=== PATIENT | male | born 1990 | race Caucasian/White ===

== ENCOUNTER 2020-03-21 05:08 | Outpatient (CLI) | payer MEDICAID, SELFPAY ==
[2020-03-21 13:02] LABS: ALT 54 U/L (16-63); AST 51 U/L (15-37); Albumin 3.9 g/dL (3.4-5.0); Alkaline Phosphatase 86 U/L (46-116); Anion Gap 7.7 mmol/L (3-11); BUN 11 mg/dL (7-18); Bilirubin, Total 0.4 mg/dL (0.2-1.0); CO2 27.3 mmol/L (21.0-32.0); CREATININE 0.62 mg/dL (0.70-1.30); Calcium 8.5 mg/dL (8.5-10.1); Calculated LDL 123 mg/dL (<100); Chloride 102 mmol/L (98-107); Cholesterol 190 mg/dL (<200); Glucose 111 mg/dL (74-106); HDL Cholesterol 42 mg/dL (40-60); Potassium 4.1 mmol/L (3.5-5.1); Sodium 137 mmol/L (136-145); TSH (W/Ref FT4) 1.56 uIU/mL (0.36-3.74); Total Protein 6.6 g/dL (6.4-8.2); Triglyceride 126 mg/dL (<150)
[2020-03-22 10:43] LABS: HIV-1/2 Ag & Ab Screen Negative (Negative)
[2020-03-22 11:21] LABS: HBs Antibody, Qual Positive (See Note); HBs Antibody, Quant 20.9 mIU/mL (See Note); Hepatitis B Core Antibody Negative (Negative); Hepatitis B surface Ag Negative (Negative); Hepatitis C Ab w Rflx HCV PCR Reactive (Negative)
[2020-03-23 14:00] LABS: HCV RNA Qualitative Detected (Undetected)
== END 2020-03-21 05:28 ==
PROVIDERS: PCP Family Medicine; Visit Provider Family Medicine
DX: F19.11 Other psychoactive substance abuse, in remission (principal); R25.1 Tremor, unspecified; Z13.220 Encounter for screening for lipoid disorders; Z13.29 Encounter for screening for other suspected endocrine disorder; Z11.4 Encounter for screening for human immunodeficiency virus [HIV]; Z11.59 Encounter for screening for other viral diseases
CPT/HCPCS: 36415; 80053; 80061; 86704; 86706; 86803; 87340; 87389; 87522; 84443

== ENCOUNTER 2020-05-05 01:32 | Outpatient (CLI) | payer MEDICAID, SELFPAY ==
[2020-05-05 13:00] LABS: Abs Immature Grans 0.02 10^3/uL (0.0-0.06); Absolute Basophil Count 0.02 10^3/uL (0.0-0.2); Absolute Eosinophil Count 0.17 10^3/uL (0.0-0.7); Absolute Monocyte Count 0.45 10^3/uL (0.1-0.8); Absolute Neutrophil Count 2.81 10^3/uL (1.2-6.7); Basophils % 0.3; Eosinophils % 2.8; HCT 43.4 % (40.0-50.0); HGB 14.5 g/dL (13.5-17.5); Immature Grans % 0.3; Lymphocytes % 41.9; MCHC 33.4 % (32.0-36.0); MCV 89.9 fL (80-95); MPV 11.8 fL (8.0-11.0); Monocytes % 7.5; Neutrophils % 47.2; Nucleated RBC 0 %; Platelet Count 126 10^3/uL (130-400); RBC 4.83 10^6/uL (4.36-5.78); RDW 12.7 % (11.8-14.1); RDW-SD 41.9 fL; WBC 5.97 10^3/uL (4.4-10.8)
[2020-05-08 18:18] LABS: HCV Genotype 2 (Undetected)
== END 2020-05-05 01:52 ==
PROVIDERS: PCP Family Medicine; Visit Provider Nurse Practitioner Adult Health
DX: B18.2 Chronic viral hepatitis C (principal)
CPT/HCPCS: 36415; 85025; 87521

== ENCOUNTER 2020-12-04 02:11 | Outpatient (CLI) | payer MEDICAID, SELFPAY ==
[2020-12-04 12:09] LABS: Abs Immature Grans 0.02 10^3/uL (0.0-0.06); Absolute Basophil Count 0.04 10^3/uL (0.0-0.2); Absolute Eosinophil Count 0.07 10^3/uL (0.0-0.7); Absolute Lymphocyte Count 2.35 10^3/uL (1.2-3.4); Absolute Monocyte Count 0.38 10^3/uL (0.1-0.8); Absolute Neutrophil Count 2.95 10^3/uL (1.2-6.7); Basophils % 0.7; Eosinophils % 1.2; HCT 42.8 % (40.0-50.0); HGB 14.3 g/dL (13.5-17.5); Immature Grans % 0.3; Lymphocytes % 40.4; MCH 30.4 pg (27.0-33.0); MCHC 33.4 % (32.0-36.0); MCV 91.1 fL (80-95); MPV 13.8 fL (8.0-11.0); Monocytes % 6.5; Neutrophils % 50.9; Nucleated RBC 0 %; RDW 12.3 % (11.8-14.1); RDW-SD 41.2 fL; WBC 5.81 10^3/uL (4.4-10.8)
[2020-12-04 12:41] LABS: Diff Comment PLT Morph Reviewed; Platelet Count 106 10^3/uL (130-400); RBC Morphology Normal
== END 2020-12-04 02:12 | disposition home or self-care (01) ==
LOC: LOS 02:11
PROVIDERS: Nurse Practitioner Adult Health; PCP Family Medicine; Visit Provider Family Medicine
DX: B18.2 Chronic viral hepatitis C (principal)
CPT/HCPCS: 36415; 80053; 87522; 85025; 87521

== ENCOUNTER 2022-06-19 13:45 | Emergency (ER) | payer MEDICAID, SELFPAY ==
[2022-06-19 14:06] VITALS: BP 119/69; PULSE 58; RESP 14; TEMP 36.8; O2SAT 96
== END 2022-06-19 15:46 | disposition left against medical advice (07) ==
PROVIDERS: PCP Family Medicine
DX: Z53.21 Procedure and treatment not carried out due to patient leaving prior to being seen by health care provider (principal)

== ENCOUNTER 2023-06-12 23:26 | Emergency (ER) | payer MEDICAID, SELFPAY ==
[2023-06-12] MEDS: methylPREDNISolone SUCC 125 MG VIAL IVP (23:26)
--- NOTE | 2023-06-12 23:28 | ED.GENADUL_ITS ---
Discharge Plan Disposition Patient Disposition: Home Condition: Improving Discharge Details Clinical Impression: Urticaria Primary Care Provider: Hussain Rosenbaum ED Provider: Alonso Carrillo Meds and New Rx's Prescriptions: New prednisone 10 mg tablets,dose pack 10 mg PO DIRECTED Qty: 30 0RF Rx Instructions: see taper instructions 4 tab x 3 days, 3 tab x 3 days,2 tab x 3 days, 1 tab x 3 days Continued (DME) lancets Misc See Rx Instructions .ROUTE .MEDSUPPLY Qty: 10 0RF Rx Instructions: To check for suspected hypoglycemia, prn when symptoms occur (DME) Blood Glucose Test Strip See Rx Instructions .ROUTE .MEDSUPPLY Qty: 25 0RF Rx Instructions: Test prn with symptoms of hypoglycemia (DME) blood-glucose meter Misc See Rx Instructions .ROUTE .MEDSUPPLY Qty: 1 0RF Rx Instructions: Test prn with symptoms of hypoglycemia gabapentin 300 mg capsule 300 mg PO DAILY methadone 10 mg tablet 90 mg PO DAILY Patient Comments: pt reported prescribed from [facility]. Discharge Instructions Instructions: Urticaria (ED) Discharge Data Discharge Physician: Alonso Carrillo Medical Decision Making Patient presents emergency department with urticarial rash who received Solu- Medrol, Benadryl, famotidine with complete resolution of his symptoms. He will be discharged on tapering dose of prednisone. He is unsure why he developed this rash he will also be giving an EpiPen if needed HPI General Date/Time Provider Initiated Documentation: 06/12/23 23:28 . HPI Narrative: Patient presents emergency department complaining of a rash in his abdomen and arms is very itchy for the last 24 hours denies any ingestion and denies any allergies Related Data Home Medications Medication Instructions Recorded Confirmed methadone 10 mg tablet 90 mg PO DAILY 02/16/20 04/29/23 blood sugar diagnostic (Blood #25 ea 10/12/20 04/29/23 Glucose Test strips) blood-glucose meter #1 ea 10/12/20 04/29/23 lancets #10 ea 10/12/20 04/29/23 gabapentin 300 mg capsule 300 mg PO DAILY 06/20/22 04/29/23 prednisone 10 mg tablets in a dose 10 mg PO DIRECTED #30 dose pk 06/13/23 pack Previous Rx's Medication Instructions Recorded blood sugar diagnostic (Blood #25 ea 10/12/20 Glucose Test strips) blood-glucose meter #1 ea 10/12/20 lancets #10 ea 10/12/20 prednisone 10 mg tablets in a dose 10 mg PO DIRECTED #30 dose pk 06/13/23 pack Allergies Allergy/AdvReac Type Severity Reaction Status Date / Time No Known Allergies Allergy Verified 04/29/23 09:21 General SIMBA: 4 Review of Systems Narrative: Review of Systems: Constitutional: No fevers, chills, sweats Eye: No recent visual problems ENT: No ear pain, nasal congestion, sore throat Respiratory: No shortness of breath, cough Cardiovascular: No Chest pain, palpitations, syncope Gastrointestinal: No nausea, vomiting, diarrhea Genitourinary: No hematuria Irvin/Lymph: Negative for bruising tendency, swollen lymph glands Endocrine: Negative for excessive thirst, excessive hunger Musculoskeletal: No back pain, neck pain, joint pain, muscle pain, decreased range of motion Integumentary: No rash, pruritus, abrasions Neurologic: Alert & oriented X 4 Psychiatric: No anxiety, depression PFSH All Active Problems Urticaria (Acute) Sore throat (Acute) Discharge of right eye (Acute) Hepatitis C infection (Chronic) 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 Nicotine dependence (Acute) Bipolar disorder (Acute) History of intravenous drug abuse (Acute) Family History Paternal Grandmother Diabetes Hypertension Father Depression Anxiety Sister Depression Mother Depression Anxiety Sister Anxiety Maternal Grandfather Heart disease Hypertension Social History Smoking/Tobacco Use Status: Current every day Tobacco Type: cigarettes Smoking packs per day: 1 Smoking cigarettes per day: 20.0 and e-cigarettes Tobacco: How many years used: 12 Quit status: not considering quitting Second Hand Exposure: Yes Smoking risk assessment performed?: Yes Alcohol Intake: never Drug use: Daily Substance use type: former substance user Date of last use: 03/14/2019--heroin,cocaine/crack--some IV use and marijuana Adopted: No Caregiver/Support person: No Foster care: No Household members: family Housing: house Number of Children: 2 Communication Needs: Corrective Lenses Education Level: high school Do you need help understanding health information?: Rarely current occupation: Unemployed--self employed, odd jobs Sexually active: Yes Do you think of yourself as: straight/heterosexual Current gender identity: male What type of physical activity do you participate in: other Details: gardening, farming Seatbelt use: sometimes 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 Working smoke detector in home: Yes Fire extinguisher in home: Yes Carbon monox detector in home: Yes Firearms in home: No Do you feel safe at home: Yes Do you feel safe in your relationship?: Yes Exam Narrative Exam Narrative: Exam; vitals signs as reported above normal Constitutional; In no acute distress, afebrile General: cooperative, healthy appearing, comfortable and no acute distress HEENT: Head: normal to inspection, no palpable skull fracture and normocephalic atraumatic Eyes: : appearance normal, both eyes and all related structures EOM intact bi laterally Pupils: PERRL : conjunctiva normal Direct ophthalmoscopy: normal light reflex, normal conjunctiva, normal visual acuity Ears: Normal TM, normal external canal Nose: normal no rhinorreha Neck no JVD, supple non tender Neck: normal visual inspection, full ROM and no lymphadenopathy Chest: normal inspection of the chest Respiratory : normal respiratory effort and able to speak in complete sentences no wheezing no rales Cardio Rate: regular rate, rhythm: regular rhythm normal heart sounds S1 and S2 no murmurs, gallops, or rubs GI : normal to inspection, normal bowel sounds, soft, non tender, non distended, no organomegaly Back/Spine/ no CVA tenderness Thoracic/Lumbar Spine: no tenderness or deformities Skin urticarial rash all over his abdomen and arms Neuro: patient alert oriented x 4 and no meningeal signs, Cranial Nerves: CN's II-XI intact bilaterally, Cognition: normal cognition, Speech: speech normal, Gait: normal gait, Depp tendon reflexes normal 2+ muscle strength 5/5 bilaterally Extremities, no edema, full range of motion, normal strength
[2023-06-12 23:34] VITALS: BP 153/64; PULSE 72; RESP 16; TEMP 37.1; O2SAT 97
[2023-06-13] MEDS: Famotidine 20 MG/2 ML VIAL IVP (00:02)
[2023-06-13] MEDS: diphenhydrAMINE 50 MG/ML VIAL IVP (00:03)
[2023-06-13 00:54] VITALS: BP 140/68; PULSE 82; RESP 16; TEMP 37.1; O2SAT 99
== END 2023-06-13 00:52 | disposition home or self-care (01) ==
PROVIDERS: Emergency Provider Emergency Medicine Emergency Medical Services; PCP Family Medicine
DX: L29.9 Pruritus, unspecified (principal); L50.9 Urticaria, unspecified; F17.210 Nicotine dependence, cigarettes, uncomplicated
CPT/HCPCS: 96374; 96375; 99283; J1200; J2930

== ENCOUNTER 2023-10-27 15:53 | Outpatient (CLI) | payer MEDICAID, SELFPAY ==
--- NOTE | 2023-10-27 08:30 | DI.RAD_ITS ---
Exam(s) XR KNEE LT 4V AP,LAT,KEVIN,PAT EXAM: XR KNEE LT 4V AP,LAT,KEVIN,PAT CLINICAL HISTORY: knee pain. TECHNIQUE: 2D digital imaging was performed of the left knee. Five images were obtained. Merchant, AP, lateral and PA tunnel views were obtained. COMPARISON: No exams were available for comparison FINDINGS: BONES: No acute fracture is present. No bony destructive lesion is seen. JOINTS: The knee is normally aligned. No joint effusion is seen. No loose body. SOFT TISSUE: There is a well corticated osseous fragment in the inferior aspect of the patella likely imbedded in the extensor mechanism. This is chronic. IMPRESSION: No acute abnormality. DATA REPOSITORY: RADIATION DOSE DELIVERED:
--- NOTE | 2023-10-27 08:30 | DI.RAD_ITS ---
Exam(s) XR KNEE RT 4V AP,LAT,KEVIN,PAT EXAM: XR KNEE RT 4V AP,LAT,KEVIN,PAT CLINICAL HISTORY: knee pain. TECHNIQUE: 2D digital imaging was performed of the right knee. Four views obtained. Merchant, AP, la teral and PA tunnel views were obtained. COMPARISON: CR XR KNEE LT 4V AP,LAT,KEVIN,PAT from 10/27/2023 FINDINGS: BONES: No acute fracture is present. No bony destructive lesion is seen. JOINTS: The knee is normally aligned. No joint effusion is seen. SOFT TISSUE: Normal. IMPRESSION: Unremarkable radiographs of the right knee. DATA REPOSITORY: RADIATION DOSE DELIVERED:
== END 2023-10-27 15:54 | disposition home or self-care (01) ==
LOC: DIORS 15:54
PROVIDERS: PCP Family Medicine; Visit Provider Physician Assistant
DX: M25.562 Pain in left knee (principal); M25.561 Pain in right knee
CPT/HCPCS: 73564

== ENCOUNTER 2024-04-16 16:33 | Outpatient (REF) | payer MEDICAID, SELFPAY ==
[2024-04-16 21:08] LABS: *AMPHETAMINES SCREEN URINE Negative (Negative); *BARBITURATES SCREEN URINE Negative (Negative); *BENZODIAZEPINES SCREEN URINE Negative (Negative); Cannabinoids THC Negative (Negative); Cocaine Screen,Urine Positive (Negative); METHADONE URINE SCREEN Positive (Negative); OPIATES URINE SCREEN Negative (Negative); Tricyclic Antidepressants Negative (Negative)
== END 2024-04-16 16:34 | disposition home or self-care (01) ==
LOC: LBN 16:33
PROVIDERS: PCP Family Medicine; Visit Provider Family Medicine
DX: Z79.899 Other long term (current) drug therapy (principal)
CPT/HCPCS: 80307

== ENCOUNTER 2024-06-11 12:40 | Emergency (ER) | payer MEDICAID, SELFPAY ==
[2024-06-11] VITALS (7 sets, daily range): BP systolic 168–181; BP diastolic 94–95; PULSE 93–106; RESP 16; TEMP 36.6; O2SAT 96–98
--- NOTE | 2024-06-11 12:55 | ED.GENADUL_ITS ---
Discharge Plan Disposition Patient Disposition: Home Condition: Stable Discharge Details Clinical Impression: Cellulitis of right lower extremity Primary Care Provider: Hussain Rosenbaum ED Provider: Salena Recio Home Meds and New Rx's Prescriptions: New cephalexin 500 mg tablet 500 mg PO BID 7 Days Qty: 14 0RF No Action methadone 10 mg tablet 90 mg PO DAILY Patient Comments: pt reported prescribed from [facility]. Discharge Instructions Instructions: Cellulitis (Skin Infection), Adult ED Additional Instructions: At this time workup is negative for systemic infection or blood clot in your leg. I do suspect that you have an infection to the skin on your leg. Please take the antibiotic with yogurt or a probiotic twice a day for the next 7 days. Keep your legs elevated when sitting or lying down. Increase oral fluids such as water. Decrease your salt intake. Follow up with primary care provider in 3-5 days. Return to ED sooner if any worsening or concerns. Please take Tylenol or Ibuprofen with food every 4-6 hours as needed for pain and swelling. Referrals: Hussain Rosenbaum DO [Primary Care Provider] - 5 days HPI General Mode of arrival: ambulatory . Date/Time Provider Initiated Documentation: 06/11/24 12:42 . Limitations to Documentation: no limitations . Information obtained by: patient, RN notes reviewed and old records reviewed . HPI Narrative: 34-year-old male presents to the ER with a chief complaint of lower extremity swelling and redness x 1 week. He reports burning noting to his right lower extremity. He does have some erythema noted anteriorly, it extends all the way up to his medial popliteal space. It is tender to the touch and warm. He is slightly disheveled, however he is alert and oriented 3 denies any chest pain shortness of breath fever chills. He endorses smoking daily denies any drugs or alcohol. He does take methadone daily and naproxen twice a day. Related Data Home Medications ?Medication ?Instructions ?Recorded ?Confirmed methadone 10 mg tablet 90 mg PO DAILY 02/16/20 06/11/24 cephalexin 500 mg tablet 500 mg PO BID 7 days #14 tabs 06/11/24 Previous Rx's ?Medication ?Instructions ?Recorded cephalexin 500 mg tablet 500 mg PO BID 7 days #14 tabs 06/11/24 Allergies Allergy/AdvReac Type Severity Reaction Status Date / Time No Known Allergies Allergy Verified 06/11/24 12:52 General Stated Complaint: GenMedical SIMBA: 3 Review of Systems All systems reviewed & are unremarkable except as noted in HPI and below Cardiovascular Cardiovascular: Reports acrocyanosis, Denies chest pain, Reports leg edema and Denies dyspnea Respiratory Respiratory: Denies dyspnea Musculoskeletal Musculoskeletal: Reports as per HPI Integumentary/Breasts Skin/Breast: Reports as per HPI, Reports erythema, Reports skin pain and Reports skin swelling Exam Extrem Right lower extremity: lower leg Details: erythema Location: of the mid lower leg Location: anteriorly, tenderness, pitting edema Details: 2+ and warmth Left lower extremity: lower leg Details: erythema Location: of the distal lower leg Location: anteriorly, tenderness, localized swelling, no edema and non- pitting edema Upper/lower leg/hip images: 2 1. Erythema, scaly, surrounding 1+ pitting edema tenderness with palpation and warmth. Course Vital Signs Vital signs: Vital Signs Temperature 36.6 C 06/11/24 12:43 Pulse 106 H 06/11/24 12:43 Blood Pressure 181/94 H 06/11/24 12:43 Pulse Oximetry 96 06/11/24 12:43 Temperature 36.6 C 06/11/24 12:43 Pulse 106 H 06/11/24 12:43 Blood Pressure 181/94 H 06/11/24 12:43 Pulse Oximetry 96 06/11/24 12:43 Medical Decision Making 34-year-old male presents to the ER with a chief complaint of lower extremity swelling and redness x 1 week. He reports burning noting to his right lower extremity. He does have some erythema noted anteriorly, it extends all the way up to his medial popliteal space. It is tender to the touch and warm. Workup ordered including CBC CMP blood cultures x 2, lactate D-dimer proBNP. I do suspect cellulitis however differential diagnosis includes but not to CHF, DVT, peripheral vascular disease. No leukocytosis, lactate is normal electrolytes are okay, glucose 109 proBNP is 15. Informed by temporary staff accountant that patient is becoming antsy and requesting to go to. No evidence of DVT to the lower extremity. Labs are largely unremarkable for systemic infection. Will give him cephalexin for likely cellulitis. Instructed on elevating his legs and follow-up care. This text was generated using [employer]umi[employer] system, please disregard any oddities of phrase or misspellings. Medical Records Medical records reviewed: Yes I reviewed the patient's medical records. Lab Data Lab results reviewed: Yes I reviewed the patient's lab results. Labs: 06/11/24 13:49 Blood Blood Culture - Pending 06/11/24 13:20 Blood Blood Culture - Pending Laboratory Tests Range/Units 06/11/24 13:20 WBC (4.4-10.8) 10^3/uL 7.35 RBC (4.36-5.78) 10^6/uL 4.77 Hgb (13.5-17.5) g/dL 13.4 L Hct (40.0-50.0) % 41.8 MCV (80-95) fL 88 MCH (27.0-33.0) pg 28.1 MCHC (32.0-36.0) % 32.1 RDW (11.8-14.1) % 13.4 Plt Count (130-400) 10^3/uL 181 MPV (8.0-11.0) fL 10.0 Immature Gran % % 0.3 Neutrophils % % 61.1 Lymphocytes % % 28.6 Monocytes % % 7.3 Eosinophils % % 2.4 Basophils % % 0.3 Nucleated RBC % (0.0-0.3) % 0.0 Absolute Neutrophils (1.2-6.7) 10^3/uL 4.49 Absolute Lymphocytes (1.2-3.4) 10^3/uL 2.10 Absolute Monocytes (0.1-0.8) 10^3/uL 0.54 Absolute Eosinophils (0.0-0.7) 10^3/uL 0.18 Absolute Basophils (0.0-0.2) 10^3/uL 0.02 VBG Lactate (0.6-1.4) mmol/L 0.8 Sodium (136-145) mmol/L 142 Potassium (3.5-5.1) mmol/L 4.9 Chloride (98-107) mmol/L 106 Carbon Dioxide (21.0-32.0) mmol/L 29.5 Anion Gap (3-11) mmol/L 6.5 BUN (7-18) mg/dL 11 Creatinine (0.70-1.30) mg/dL 0.7 Est GFR (CKD-EPI 2020) (mL/min/1.73m2) 125.55 Glucose (74-106) mg/dL 109 H Calcium (8.5-10.1) mg/dL 8.5 Magnesium (1.8-2.4) mg/dL 2.0 Total Bilirubin (0.2-1.0) mg/dL 0.36 AST (15-37) U/L 22 ALT (16-63) U/L 17 Alkaline Phosphatase (46-116) U/L 68 NT-Pro-B Natriuret Pep (<300) pg/mL 15 Total Protein (6.4-8.2) g/dL 7.1 Albumin (3.4-5.0) g/dL 3.5 Quality:SDOH Health Related Social Needs: 2 No Data to Display PFSH All Active Problems Cellulitis of right lower extremity (Acute) Plantar fasciitis, bilateral (Acute) Foot pain, right (Acute) Seborrheic dermatitis (Acute) Patellofemoral arthralgia of both knees (Acute) ADD (attention deficit disorder) (Acute) Sore throat (Acute) Discharge of right eye (Acute) Nicotine dependence (Acute) Bipolar disorder (Acute) History of intravenous drug abuse (Acute) Family History Paternal Grandmother Diabetes Hypertension Father Depression Anxiety Sister Depression Mother Depression Anxiety Sister Anxiety Maternal Grandfather Heart disease Hypertension Social History Smoking/Tobacco Use Status: Current every day Tobacco Type: cigarettes Smoking packs per day: 1 Smoking cigarettes per day: 20.0 and e-cigarettes Tobacco: How many years used: 12 Quit status: not considering quitting Second Hand Exposure: Yes Smoking risk assessment performed?: Yes Alcohol Intake: never Drug use: Daily Substance use type: former substance user Date of last use: 03/14/2019--heroin,cocaine/crack--some IV use, marijuana and IV drugs Adopted: No Caregiver/Support person: No Foster care: No Household members: family Housing: house Number of Children: 2 Communication Needs: Corrective Lenses Education Level: high school Do you need help understanding health information?: Rarely current occupation: Unemployed--self employed, odd jobs Sexually active: Yes Do you think of yourself as: straight/heterosexual Current gender identity: male What type of physical activity do you participate in: other Details: gardening, farming Seatbelt use: sometimes 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
--- NOTE | 2024-06-11 13:15 | DI.US_ITS ---
Exam(s) US LOWER EXTREMITY VENOUS RT EXAM: US LOWER EXTREMITY VENOUS RT CLINICAL HISTORY: Swelling, redness TECHNIQUE: Right lower extremity venous ultrasound performed using grayscale, color-flow, and spectr al Doppler analysis. COMPARISON: No exams were available for comparison FINDINGS: The right common femoral, femoral and popliteal veins demonstrate normal compressibility, augmentatio n, and color Doppler. The posterior tibial and peroneal veins are patent. The saphenofemoral junctio n is unremarkable. There is no evidence of a Burgess cyst. The soft tissues are unremarkable. IMPRESSION: No evidence of a right lower extremity DVT. DATA REPOSITORY:
[2024-06-11 13:27] LABS: Lactate 0.8 mmol/L (0.6-1.4)
[2024-06-11 13:29] LABS: Abs Immature Grans 0.02 10^3/uL (0.0-0.06); Absolute Basophil Count 0.02 10^3/uL (0.0-0.2); Absolute Eosinophil Count 0.18 10^3/uL (0.0-0.7); Absolute Monocyte Count 0.54 10^3/uL (0.1-0.8); Absolute Neutrophil Count 4.49 10^3/uL (1.2-6.7); Basophils % 0.3 %; Eosinophils % 2.4 %; HCT 41.8 % (40.0-50.0); HGB 13.4 g/dL (13.5-17.5); Immature Grans % 0.3 %; Lymphocytes % 28.6 %; MCH 28.1 pg (27.0-33.0); MCHC 32.1 % (32.0-36.0); MCV 88 fL (80-95); Monocytes % 7.3 %; Neutrophils % 61.1 %; Platelet Count 181 10^3/uL (130-400); RBC 4.77 10^6/uL (4.36-5.78); RDW 13.4 % (11.8-14.1); RDW-SD 43.5 fL; WBC 7.35 10^3/uL (4.4-10.8)
[2024-06-11 14:03] LABS: ALT 17 U/L (16-63); AST 22 U/L (15-37); Albumin 3.5 g/dL (3.4-5.0); Alkaline Phosphatase 68 U/L (46-116); Anion Gap 6.5 mmol/L (3-11); BUN 11 mg/dL (7-18); Bilirubin, Total 0.36 mg/dL (0.2-1.0); CO2 29.5 mmol/L (21.0-32.0); CREATININE 0.7 mg/dL (0.70-1.30); Calcium 8.5 mg/dL (8.5-10.1); Chloride 106 mmol/L (98-107); Estimated GFR 125.55 (mL/min/1.73m2); Glucose 109 mg/dL (74-106); NT-proBNP 15 pg/mL (<300); Potassium 4.9 mmol/L (3.5-5.1); Sodium 142 mmol/L (136-145); Total Protein 7.1 g/dL (6.4-8.2)
[2024-06-11] MEDS: Cephalexin 500 MG CAP PO (14:36)
[2024-06-11 14:57] LABS: D-Dimer 250 ng/mlFEU (<500)
== END 2024-06-11 14:39 | disposition home or self-care (01) ==
PROVIDERS: Emergency Provider Registered Nurse Emergency; PCP Family Medicine
DX: L03.115 Cellulitis of right lower limb (principal)
CPT/HCPCS: 36415; 80053; 87040; 99284; 83605; 83735; 83880; 85025; 85379; 93971

== ENCOUNTER 2024-06-24 15:01 | Outpatient (CLI) | payer MEDICAID, SELFPAY ==
--- NOTE | 2024-06-24 14:30 | DI.RAD_ITS ---
Exam(s) XR FOOT RT COMPLETE EXAM: XR FOOT RT COMPLETE CLINICAL HISTORY: Bruising and pain, worst on medial malleolus [id number] pain rt foot. TECHNIQUE: 2D digital imaging was performed. Three views. COMPARISON: No exams were available for comparison FINDINGS: BONES: No acute fracture is present. No bony destructive lesion is seen. JOINTS: No dislocation present. No significant degenerative changes. Plantar arch is maintained. SOFT TISSUE: Diffuse edema. No foreign body or abnormal gas collection. IMPRESSION: Soft tissue edema. DATA REPOSITORY: RADIATION DOSE DELIVERED:
--- NOTE | 2024-06-24 14:30 | DI.RAD_ITS ---
Exam(s) XR TIB/FIB RT EXAM: XR TIB/FIB RT CLINICAL HISTORY: Persistent cellulitis, r/o [id number]. TECHNIQUE: 2D digital imaging was performed. Two views. COMPARISON: CR XR KNEE RT 4V AP,LAT,KEVIN,PAT from 10/27/2023 FINDINGS: BONES: No acute fracture is present. No bony destructive lesion is seen. Visualized portion of knee a nd ankle joints are unremarkable. SOFT TISSUE: Diffuse soft tissue edema. No foreign bodies. No abnormal gas collections. IMPRESSION: Soft tissue edema. DATA REPOSITORY: RADIATION DOSE DELIVERED:
== END 2024-06-24 15:21 ==
LOC: DI 15:02
PROVIDERS: PCP Family Medicine; Visit Provider Family Medicine
DX: L03.115 Cellulitis of right lower limb (principal); M79.671 Pain in right foot
CPT/HCPCS: 73590; 73630